=== PATIENT | male | born 1940 | race Caucasian/White ===

== ENCOUNTER 2020-03-01 09:54 | Observation (INO) | payer MEDICARE, OTHER ==
[~2020-03-01 09:54] MED LIST: Acetaminophen 325 MG Tab PO SCH; EPINEPHrine 1 MG/ML SDV ONE; Lactated Ringers 1,000 ML IV SCH; Lidocaine 1% 0 ML ONE; Lidocaine 1%/Sod Bicarbonate in NS 8.4% 1 ML Syringe IDERM PRN; Morphine 8 MG, EPINEPHrine 0.3 MG, Cefuroxime 750 MG, Ketorolac 30 MG, Sodium Chloride ... PRN; Ondansetron 4 MG/2 ML SDV ONE; Pregabalin 25 MG Cap PO SCH; Propofol 200 MG/20 ML SDV ONE; Ropivacaine 0.5% 5 MG/ML 30 ML SDV ONE; Sodium Chloride 0.9% 10 ML Syringe FLUSH PRN; ceFAZolin 1 GM Vial ONE; oxyCODONE ER 10 MG TAB.ER PO SCH
--- NOTE | 2020-03-01 10:33 | PCM.PREANE ---
Preanesthetic Assessment - Procedure Proposed Procedure: right total knee arthroplasty - Anesthesia/Transfusion/Family Hx Anesthesia History: Prior Anesthesia Without Reaction Family History of Anesthesia Reaction: No Transfusion History: No Prior Transfusion(s) - Review of Systems General: No Symptoms Pulmonary: Shortness of Breath (when walks) Cardiovascular: Dyspnea on Exertion Gastrointestinal: No Symptoms Neurological: No Symptoms Other: Reports: None - Physical Assessment NPO Status Date: 02/29/20 NPO Status Time: 22:00 Vital Signs: Last Vital Signs Temp 97.0 F 03/01/20 09:50 Pulse 74 03/01/20 09:50 Resp 20 03/01/20 09:50 BP 136/71 03/01/20 09:50 Pulse Ox 100 03/01/20 09:50 Height: 5 ft 8 in Weight: 115.212 kg ASA Class: 3 Mental Status: Alert & Oriented x3 Airway Class: Mallampati = 1 Dentition: Reports: Edentulous (except for bottom teeth) Thyro-Mental Finger Breadths: 3 Mouth Opening Finger Breadths: 3 ROM/Head Extension: Full Lungs: Clear to Auscultation, Normal Respiratory Effort Cardiovascular: Regular Rate, Irregular Rhythm - Lab Values: Laboratory Last Values MRSA (PCR) Negative 02/18/20 14:50 - Allergies Allergies/Adverse Reactions: Allergies Allergy/AdvReac Type Severity Reaction Status Date / Time No Known Allergies Allergy Verified 02/27/20 12:40 - Blood Blood Available: No - Anesthesia Plan Beta Nydia: Metoprolol Med Last Dose Date: 03/01/20 Med Last Dose Time: 05:30 - Acknowledgements Anesthesia Type Planned: Spinal Pt an Appropriate Candidate for the Planned Anesthesia: Yes Alternatives and Risks of Anesthesia Discussed w Pt/Guardian: Yes Pt/Guardian Understands and Agrees with Anesthesia Plan: Yes PreAnesthesia Questionnaire HEENT History: Reports: None Cardiovascular History: Reports: Afib, High Cholesterol, Hypertension, Other (See Below) Other Cardiovascular History: bradycardia Respiratory History: Reports: None, Other (See Below) (puff of inhaler am and pm- not used lately) Gastrointestinal History: Reports: None Genitourinary History: Reports: Other (See Below) Other Genitourinary History: frequency [employer] History: Reports: None Musculoskeletal History: Reports: Arthritis, Other (See Below) Other Musculoskeletal History: left knee arthritis, left ankle fracture Neurological History: Reports: None Psychiatric History: Reports: None Endocrine/Metabolic History: Reports: Obesity/BMI 30+ Hematologic History: Reports: None Immunologic History: Reports: None Oncologic (Cancer) History: Reports: None Dermatologic History: Reports: None - Past Surgical History Head Surgeries/Procedures: Reports: None HEENT Surgical History: Reports: None Cardiovascular Surgical History: Reports: None Respiratory Surgical History: Reports: None GI Surgical History: Reports: Colonoscopy Female Surgical History: Reports: None Male Surgical History: Reports: None Endocrine Surgical History: Reports: None Neurological Surgical History: Reports: None Musculoskeletal Surgical History: Reports: Hip Replacement, Knee Replacement Oncologic Surgical History: Reports: None Dermatological Surgical History: Reports: None - SUBSTANCE USE Tobacco Use Status *Q: Never Tobacco User Tobacco Use Within Last Twelve Months: No Second Hand Smoke Exposure: No Recreational Drug Use History: No - HOME MEDS Home Medications: Home Meds Albuterol Sulfate [Proair Hfa] 1 - 2 puff INH Q4H PRN 02/27/20 [History] Cholecalciferol (Vitamin D3) [Vitamin D3] 4,000 unit PO DAILY 02/27/20 [History] Finasteride [Proscar] 5 mg PO DAILY 02/27/20 [History] Metoprolol Succinate 100 mg PO DAILY 02/27/20 [History] Naproxen [Naprosyn] 500 mg PO Q6H PRN 02/27/20 [History] Rivaroxaban [Xarelto] 20 mg PO DAILY 02/27/20 [History] Simvastatin [Zocor] 80 mg PO DAILY 02/27/20 [History] Spironolactone [Aldactone] 25 mg PO DAILY 02/27/20 [History] hydroCHLOROthiazide [Hydrochlorothiazide] 12.5 mg PO DAILY 02/27/20 [History] oxyCODONE 5 - 10 mg PO Q4H PRN #40 tab 02/28/20 [Rx] - CURRENT (IN HOUSE) MEDS Current Meds: Current Medications Acetaminophen (Tylenol) 975 mg PO ONETIME [facility] Stop: 03/01/20 15:00 Last Admin: 03/01/20 10:24 Dose: 975 mg Documented by: Morphine Sulfate 8 mg/Epinephrine HCl 0.3 mg/Cefuroxime Sodium 750 mg/Ketorolac Tromethamine 30 mg/Sodium Chloride 7.9 ml 0 mg .XX ASDIRECTED PRN PRN Reason: Pain Stop: 03/01/20 13:00 Lactated Ringer's (Ringers, Lactated) 1,000 mls @ 125 mls/hr IV ASDIRECTED [facility] Stop: 03/01/20 23:00 Lidocaine/Sodium Bicarbonate (Buffered Lidocaine 1% In Ns 8.4%) 0.25 ml IDERM ONETIME PRN PRN Reason: Prior to IV Start Stop: 03/01/20 18:00 Oxycodone HCl (Oxycontin) 10 mg PO ONETIME [facility] Stop: 03/01/20 15:00 Last Admin: 03/01/20 10:23 Dose: 10 mg Documented by: Pregabalin (Lyrica) 50 mg PO ONETIME [facility] Stop: 03/01/20 15:00 Last Admin: 03/01/20 10:24 Dose: 50 mg Documented by: Sodium Chloride (Saline Flush) 10 ml FLUSH ASDIRECTED PRN PRN Reason: Keep Vein Open Stop: 03/01/20 18:00 Discontinued Medications Cefazolin Sodium (Ancef) Confirm Administered Dose 2 gm .ROUTE .[facility]-MED ONE Stop: 03/01/20 07:48 Epinephrine HCl (Adrenalin) Confirm Administered Dose 1 mg .ROUTE .ST[facility]-MED ONE Stop: 03/01/20 07:42 Lidocaine HCl (Xylocaine-Mpf 1%) Confirm Administered Dose 4 mls @ as directed .ROUTE .ST[facility]-MED ONE Stop: 03/01/20 07:48 Ondansetron HCl (Zofran) Confirm Administered Dose 4 mg .ROUTE .STK-MED ONE Stop: 03/01/20 07:48 Propofol (Diprivan 20 Ml) Confirm Administered Dose 400 mg .ROUTE .ST[facility]-MED ONE Stop: 03/01/20 07:48 Ropivacaine (Naropin 0.5%) Confirm Administered Dose 30 ml .ROUTE .STK-MED ONE Stop: 03/01/20 07:42
[2020-03-01] MEDS ORDERED: Bupivacaine 0.25% 10 ML SDV ONE (10:37)
[2020-03-01] MEDS ORDERED: Lidocaine 1% 4 ML ONE (10:47)
[2020-03-01] MEDS ORDERED: Propofol 200 MG/20 ML SDV ONE (10:47)
[2020-03-01] MEDS ORDERED: fentaNYL 100 MCG/2 ML SDV ONE (10:47)
[2020-03-01] MEDS ORDERED: Midazolam 1 MG/ML 2 ML SDV ONE (10:48)
[2020-03-01] MEDS ORDERED: ePHEDrine 50 MG/ML SDV ONE (12:53)
[2020-03-01] MEDS ORDERED: Lactated Ringers 1,000 ML ONE (12:58)
[2020-03-01] MEDS: Vancomycin 1 GM SDV ONE ×2 (13:39→13:42)
[2020-03-01] MEDS ORDERED: Ketamine 500 mg/10 ML MDV ONE (13:55)
--- NOTE | 2020-03-01 14:21 | PCM.POSTAN ---
POST ANESTHESIA ASSESSMENT - MENTAL STATUS Mental Status: Alert - VITAL SIGNS Vital Signs: Last Vital Signs Temp 36.1 C 03/01/20 09:50 Pulse 74 03/01/20 09:50 Resp 20 03/01/20 09:50 BP 136/71 03/01/20 09:50 Pulse Ox 100 03/01/20 09:50 - RESPIRATORY Respiratory Status: Respiratory Rate WNL, Airway Patent, O2 Saturation Stable, Supplemental Oxygen - CARDIOVASCULAR CV Status: Pulse Rate WNL, Blood Pressure Stable - GASTROINTESTINAL GI Status: No Symptoms - PAIN Pain Score: 0 - POST OP HYDRATION Hydration Status: Adequate & Stable
--- NOTE | 2020-03-01 15:07 | PCM.SN.2 ---
- Free Text/Narrative Note: Right selective femoral nerve block at the adductor canal for post-procedure pain control under US guidance requested by Dr. Rodriguez. Date: 03/01/2020 Time Out: 1450 Start: 1452 End: 145 Chart reviewed. Consent signed. Questions answered. Appropriate monitors applied. Time out performed. Right mid-shaft femur identified with ultrasound, scanning medially of femur, the femoral artery in the adductor canal visualized, and the femoral nerve located laterally to the artery. The skin was prepped lateral to the ultrasound probe with chlorahexadine times two. The 21ga 4 insulated block needle was inserted under direct ultrasound guidance into the adductor canal. 25mL of 0.5% ropivacaine with 1:200,000 epinephrine was injected circumferentially around the nerve with intermittent negative aspiration noted. Patient tolerated the procedure well. Sterile technique noted along with sterile gloves, mask, and sterile probe cover. See picture on progress note and vital signs on nurses notes. Block completed in PACU. Sandra Vidal CRNA
--- NOTE | 2020-03-01 15:09 | CR ---
Right knee: AP and lateral views of the right knee were obtained. Comparison: No previous knee study is available. Knee prosthesis is noted. Soft tissue air is noted from the knee prosthesis surgery. No underlying bony abnormality is appreciated. Impression: 1. Satisfactory postoperative radiographic appearance of recently placed right knee prosthesis. Diagnostic code #2
[2020-03-01] MEDS ORDERED: oxyCODONE 5 MG Tab PO PRN (16:11)
[2020-03-01] MEDS ORDERED: Morphine 2 MG/ML SYRINGE IVPUSH PRN (16:12)
[2020-03-01] MEDS ORDERED: Sennosides 8.6 MG Tab PO PRN (16:12)
[2020-03-01] MEDS ORDERED: Naloxone 0.4 MG/ML SDV IVPUSH PRN (16:12)
[2020-03-01] MEDS ORDERED: Ondansetron 4 MG/2 ML SDV IVPUSH PRN (16:12)
[2020-03-01] MEDS ORDERED: Albuterol 6.7 GM Inhaler INH PRN (16:16)
[2020-03-01] MEDS: ceFAZolin 2 GM in Premix Bag 1 BAG IV SCH (19:54)
[2020-03-01] MEDS: Cyclobenzaprine 10 MG Tab PO PRN (20:02)
[2020-03-02] MEDS: oxyCODONE 5 MG Tab PO PRN ×2 (00:05→04:04)
[2020-03-02] MEDS: ceFAZolin 2 GM in Premix Bag 1 BAG IV SCH (04:00)
[2020-03-02] MEDS: Cyclobenzaprine 10 MG Tab PO PRN (08:41)
--- NOTE | 2020-03-02 08:45 | PCM48HPAN ---
Post Anesthesia Note - EVALUATION WITHIN 48HRS OF ANESTHETIC Vital Signs in Normal Range: Yes Patient Participated in Evaluation: Yes Respiratory Function Stable: Yes Airway Patent: Yes Cardiovascular Function Stable: Yes Hydration Status Stable: Yes Pain Control Satisfactory: Yes Nausea and Vomiting Control Satisfactory: Yes Mental Status Recovered: Yes Vital Signs: Last Vital Signs Temp 36.2 C 03/02/20 07:49 Pulse 88 03/02/20 08:37 Resp 16 03/02/20 07:49 BP 114/54 L 03/02/20 08:37 Pulse Ox 96 03/02/20 07:49
[2020-03-02] MEDS ORDERED: Rivaroxaban 10 MG Tab PO SCH (09:00)
[2020-03-02] MEDS ORDERED: Simvastatin 40 MG Tab PO SCH (09:00)
[2020-03-02] MEDS ORDERED: Finasteride 5 MG Tab PO SCH (09:00)
[2020-03-02] MEDS ORDERED: Metoprolol Succinate 50 MG Tab.ER PO SCH (09:00)
[2020-03-02] MEDS ORDERED: Cholecalciferol (Vitamin D3) 25 MCG Tab PO SCH (09:00)
--- NOTE | 2020-03-02 09:30 | PCM.SURGPN ---
- General Info Date of Service: 03/02/20 POD#: 1 Functional Status: Reports: Pain Controlled, Tolerating Diet, Ambulating, Urinating, Incentive Spirometry, Other (The pt states he is doing well and prepared for d/c to home.) - Patient Data Vitals - Most Recent: Last Vital Signs Temp 97.2 F 03/02/20 07:49 Pulse 88 03/02/20 08:37 Resp 16 03/02/20 07:49 BP 114/54 L 03/02/20 08:37 Pulse Ox 96 03/02/20 07:49 Weight - Most Recent: 254 lb I&O - Last 24 Hours: Intake & Output 03/01/20 03/02/20 03/02/20 22:59 06:59 14:59 Intake Total 460 Balance 460 Lab Results Last 24 Hrs: Laboratory Results - last 24 hr 03/01/20 03/02/20 03/02/20 Range/Units 10:35 05:23 05:23 WBC 8.47 (4.23-9.07) K/mm3 RBC 3.77 L (4.63-6.08) M/mm3 Hgb 12.3 L (13.7-17.5) gm/dl Hct 38.3 L (40.1-51.0) % MCV 101.6 H (79.0-92.2) fl MCH 32.6 H (25.7-32.2) pg MCHC 32.1 L (32.2-35.5) g/dl RDW Std Deviation 51.4 H (35.1-43.9) fL Plt Count 150 L (163-337) K/mm3 MPV 9.5 (9.4-12.3) fl PT 11.4 (9.7-12.0) SECONDS INR 1.07 APTT 27.5 (21.7-31.4) SECONDS Sodium 144 (136-145) mEq/L Potassium 4.3 (3.5-5.1) mEq/L Chloride 107 (98-107) mEq/L Carbon Dioxide 26 (21-32) mEq/L Anion Gap 15.3 H (5-15) BUN 24 H (7-18) mg/dL Creatinine 1.4 H (0.7-1.3) mg/dL Est Cr Clr Drug Dosing 42.07 mL/min Estimated GFR (MDRD) 49 (>60) mL/min BUN/Creatinine Ratio 17.1 (14-18) Glucose 103 (83-115) mg/dL Calcium 9.1 (8.5-10.1) mg/dL Total Bilirubin 0.6 (0.2-1.0) mg/dL AST 14 L (15-37) U/L ALT 13 L (16-63) U/L Alkaline Phosphatase 64 (46-116) U/L Total Protein 6.5 (6.4-8.2) g/dl Albumin 3.1 L (3.4-5.0) g/dl Globulin 3.4 gm/dL Albumin/Globulin Ratio 0.9 L (1-2) Med Orders - Current: Current Medications Albuterol (Proventil Hfa) 1 - 2 gm INH Q4H PRN PRN Reason: Shortness of Breath Cholecalciferol (Vitamin D3) 100 mcg PO DAILY [facility] Last Admin: 03/02/20 08:36 Dose: 100 mcg Documented by: Cyclobenzaprine HCl (Flexeril) 5 mg PO BID PRN PRN Reason: Spasms Last Admin: 03/02/20 08:41 Dose: 5 mg Documented by: Finasteride (Proscar) 5 mg PO DAILY [facility] Last Admin: 03/02/20 08:39 Dose: 5 mg Documented by: Cefazolin Sodium/Dextrose 2 gm (/ Premix) 50 mls @ 100 mls/hr IV Q8H [facility] Stop: 03/02/20 12:29 Last Admin: 03/02/20 04:00 Dose: 100 mls/hr Documented by: Metoprolol Succinate (Toprol Xl) 100 mg PO DAILY [facility] Last Admin: 03/02/20 08:37 Dose: 100 mg Documented by: Morphine Sulfate (Morphine) 2 mg IVPUSH Q2H PRN PRN Reason: Breakthrough Pain Naloxone HCl (Narcan) 0.1 mg IVPUSH Q5M PRN PRN Reason: Oversedation Ondansetron HCl (Zofran) 4 mg IVPUSH Q6H PRN PRN Reason: Nausea/Vomiting Oxycodone HCl (Oxycodone) 5 mg PO Q4H PRN PRN Reason: Pain Last Admin: 03/02/20 04:04 Dose: 5 mg Documented by: Oxycodone HCl (Oxycodone) 5 - 10 mg PO Q4H PRN PRN Reason: Pain Last Admin: 03/02/20 08:39 Dose: 10 mg Documented by: Rivaroxaban (Xarelto) 20 mg PO DAILY [facility] Last Admin: 03/02/20 08:36 Dose: 20 mg Documented by: Senna (Senna) 8.6 mg PO BID PRN PRN Reason: Constipation Simvastatin (Zocor) 80 mg PO DAILY [facility] Last Admin: 03/02/20 08:40 Dose: 80 mg Documented by: Discontinued Medications Acetaminophen (Tylenol) 975 mg PO ONETIME [facility] Stop: 03/01/20 15:00 Last Admin: 03/01/20 10:24 Dose: 975 mg Documented by: Bupivacaine HCl (Sensorcaine-Mpf 0.25%) Confirm Administered Dose 30 ml .ROUTE .STK-MED ONE Stop: 03/01/20 10:38 Last Admin: 03/01/20 13:37 Dose: 30 ml Documented by: Cefazolin Sodium (Ancef) Confirm Administered Dose 2 gm .ROUTE .STK-MED ONE Stop: 03/01/20 07:48 Morphine Sulfate 8 mg/Epinephrine HCl 0.3 mg/Cefuroxime Sodium 750 mg/Ketorolac Tromethamine 30 mg/Sodium Chloride 7.9 ml 0 mg .XX ASDIRECTED PRN PRN Reason: Pain Stop: 03/01/20 13:00 Last Admin: 03/01/20 13:37 Dose: 788.3 mg Documented by: Ephedrine Sulfate (Ephedrine Sulfate) Confirm Administered Dose 50 mg .ROUTE .STK-MED ONE Stop: 03/01/20 12:54 Epinephrine HCl (Adrenalin) Confirm Administered Dose 1 mg .ROUTE .STK-MED ONE Stop: 03/01/20 07:42 Fentanyl (Sublimaze) Confirm Administered Dose 100 mcg .ROUTE .STK-MED ONE Stop: 03/01/20 10:48 Lactated Ringer's (Ringers, Lactated) 1,000 mls @ 125 mls/hr IV ASDIRECTED [facility] Stop: 03/01/20 23:00 Last Admin: 03/01/20 10:45 Dose: 125 mls/hr Documented by: Lidocaine HCl (Xylocaine-Mpf 1%) Confirm Administered Dose 4 mls @ as directed .ROUTE .STK-MED ONE Stop: 03/01/20 07:48 Lidocaine HCl (Xylocaine-Mpf 1%) Confirm Administered Dose 4 mls @ as directed .ROUTE .[facility]-MED ONE Stop: 03/01/20 10:48 Lactated Ringer's (Ringers, Lactated) Confirm Administered Dose 1,000 mls @ as directed .ROUTE .[facility]-MED ONE Stop: 03/01/20 12:59 Ketamine HCl (Ketalar) Confirm Administered Dose 500 mg .ROUTE .[facility]-MED ONE Stop: 03/01/20 13:56 Lidocaine/Sodium Bicarbonate (Buffered Lidocaine 1% In Ns 8.4%) 0.25 ml IDERM ONETIME PRN PRN Reason: Prior to IV Start Stop: 03/01/20 18:00 Last Admin: 03/01/20 10:45 Dose: 0.25 ml Documented by: Midazolam HCl (Versed 1 Mg/Ml) Confirm Administered Dose 2 mg .ROUTE .[facility]-MED ONE Stop: 03/01/20 10:49 Ondansetron HCl (Zofran) Confirm Administered Dose 4 mg .ROUTE .[facility] ONE Stop: 03/01/20 07:48 Oxycodone HCl (Oxycontin) 10 mg PO ONETIME [facility] Stop: 03/01/20 15:00 Last Admin: 03/01/20 10:23 Dose: 10 mg Documented by: Pregabalin (Lyrica) 50 mg PO ONETIME [facility] Stop: 03/01/20 15:00 Last Admin: 03/01/20 10:24 Dose: 50 mg Documented by: Propofol (Diprivan 20 Ml) Confirm Administered Dose 400 mg .ROUTE .[facility]-MED ONE Stop: 03/01/20 07:48 Propofol (Diprivan 20 Ml) Confirm Administered Dose 400 mg .ROUTE .[facility]-MED ONE Stop: 03/01/20 10:48 Ropivacaine (Naropin 0.5%) Confirm Administered Dose 30 ml .ROUTE .[facility]-MED ONE Stop: 03/01/20 07:42 Sodium Chloride (Saline Flush) 10 ml FLUSH ASDIRECTED PRN PRN Reason: Keep Vein Open Stop: 03/01/20 18:00 Tranexamic Acid (Cyklokapron) Confirm Administered Dose 1,000 mg .ROUTE .ST-MED ONE Stop: 03/01/20 10:38 Last Admin: 03/01/20 13:42 Dose: 1,000 mg Documented by: Vancomycin HCl (Vancomycin) Confirm Administered Dose 1 gm .ROUTE .STK-MED ONE Stop: 03/01/20 10:38 Last Admin: 03/01/20 13:42 Dose: 1 gm Documented by: - Exam Wound/Incisions: Dressing Dry and Intact General: Alert, Cooperative, No Acute Distress Lungs: Normal Respiratory Effort Extremities: Other (NVS intact for BLE. Juan Manuel's negative.) Sepsis Event Note - Evaluation Sepsis Screening Result: No Definite Risk - Focused Exam Vital Signs: Vital Signs Temp Pulse Resp BP Pulse Ox 03/02/20 08:37 88 114/54 L 03/02/20 07:49 97.2 F 72 16 114/54 L 96 03/02/20 04:15 96.8 F L 71 16 121/59 L 95 03/01/20 23:56 96.6 F L 59 L 14 114/91 H 92 L 03/01/20 21:34 108/73 - Problem List Review Problem List Initiated/Reviewed/Updated: Yes - My Orders Last 24 Hours: Active Orders 24 hr Category Date Time Status Patient Status [ADT] Routine ADT 03/01/20 16:12 Active Ambulate [RC] PER UNIT ROUTINE Care 03/01/20 16:12 Active Antiembolic Devices [RC] PER UNIT ROUTINE Care 03/01/20 16:11 Active Communication Order [RC] ASDIRECTED Care 03/01/20 16:18 Active Communication Order [RC] ASDIRECTED Care 03/02/20 09:24 Ordered May Shower [RC] ASDIRECTED Care 03/01/20 16:12 Active Oxygen Therapy [RC] PRN Care 03/01/20 16:12 Active RT Incentive Spirometry [RC] Q1HWA Care 03/01/20 16:10 Active Up to Chair [RC] ASDIRECTED Care 03/01/20 16:12 Active Vital Signs [RC] Q4HR Care 03/01/20 16:12 Active OT Evaluation and Treatment [CONS] Routine Cons 03/01/20 16:10 Active PT Evaluation and Treatment [CONS] Routine Cons 03/01/20 16:10 Active Regular Diet [DIET] Diet 03/01/20 Dinner Active Regular Diet [DIET] Diet 03/01/20 Dinner Active Albuterol [Proventil HFA] Med 03/01/20 16:16 Active 1 - 2 gm INH Q4H PRN Cholecalciferol (Vitamin D3) [Vitamin D3] Med 03/02/20 09:00 Active 100 mcg PO DAILY Cyclobenzaprine [Flexeril] Med 03/01/20 16:11 Active 5 mg PO BID PRN Finasteride [Proscar] Med 03/02/20 09:00 Active 5 mg PO DAILY Metoprolol Succinate [Toprol XL] Med 03/02/20 09:00 Active 100 mg PO DAILY Morphine Med 03/01/20 16:12 Active 2 mg IVPUSH Q2H PRN Naloxone [Narcan] Med 03/01/20 16:12 Active 0.1 mg IVPUSH Q5M PRN Ondansetron [Zofran] Med 03/01/20 16:12 Active 4 mg IVPUSH Q6H PRN Rivaroxaban [Xarelto] Med 03/02/20 09:00 Active 20 mg PO DAILY Sennosides [Senna] Med 03/01/20 16:12 Active 8.6 mg PO BID PRN Simvastatin [Zocor] Med 03/02/20 09:00 Active 80 mg PO DAILY ceFAZolin [Ancef] 2 gm Med 03/01/20 20:00 Active Premix Bag 1 bag IV Q8H oxyCODONE Med 03/01/20 16:11 Active 5 - 10 mg PO Q4H PRN oxyCODONE Med 03/01/20 15:40 Active 5 mg PO Q4H PRN Antiembolic Hose [OM.PC] Routine Oth 03/01/20 16:11 Ordered Ice Therapy [OM.PC] Per Unit Routine Oth 03/01/20 16:13 Ordered Sequential Compression Device [OM.PC] Per Unit Routine Oth 03/01/20 16:11 Ordered Resuscitation Status Routine Resus Stat 03/01/20 16:12 Ordered Medication Orders Albuterol (Proventil Hfa) 1 - 2 gm INH Q4H PRN PRN Reason: Shortness of Breath Cholecalciferol (Vitamin D3) 100 mcg PO DAILY [facility] Last Admin: 03/02/20 08:36 Dose: 100 mcg Documented by: ANGELA Cyclobenzaprine HCl (Flexeril) 5 mg PO BID PRN PRN Reason: Spasms Last Admin: 03/02/20 08:41 Dose: 5 mg Documented by: Admin: 03/01/20 20:02 Dose: 5 mg Documented by: KALEE Finasteride (Proscar) 5 mg PO DAILY [facility] Last Admin: 03/02/20 08:39 Dose: 5 mg Documented by: ANGELA Cefazolin Sodium/Dextrose 2 gm (/ Premix) 50 mls @ 100 mls/hr IV Q8H [facility] Stop: 03/02/20 12:29 Last Admin: 03/02/20 04:00 Dose: 100 mls/hr Documented by: Infusion: 03/01/20 20:24 Dose: 100 mls/hr Documented by: Admin: 03/01/20 19:54 Dose: 100 mls/hr Documented by: KALEE Metoprolol Succinate (Toprol Xl) 100 mg PO DAILY [facility] Last Admin: 03/02/20 08:37 Dose: 100 mg Documented by: ANGELA Morphine Sulfate (Morphine) 2 mg IVPUSH Q2H PRN PRN Reason: Breakthrough Pain Naloxone HCl (Narcan) 0.1 mg IVPUSH Q5M PRN PRN Reason: Oversedation Ondansetron HCl (Zofran) 4 mg IVPUSH Q6H PRN PRN Reason: Nausea/Vomiting Oxycodone HCl (Oxycodone) 5 mg PO Q4H PRN PRN Reason: Pain Last Admin: 03/02/20 04:04 Dose: 5 mg Documented by: Admin: 03/02/20 00:05 Dose: 5 mg Documented by: KALEE Oxycodone HCl (Oxycodone) 5 - 10 mg PO Q4H PRN PRN Reason: Pain Last Admin: 03/02/20 08:39 Dose: 10 mg Documented by: ANGELA Rivaroxaban (Xarelto) 20 mg PO DAILY [facility] Last Admin: 03/02/20 08:36 Dose: 20 mg Documented by: ANGELA Senna (Senna) 8.6 mg PO BID PRN PRN Reason: Constipation Simvastatin (Zocor) 80 mg PO DAILY [facility] Last Admin: 03/02/20 08:40 Dose: 80 mg Documented by: ANGELA - Assessment Assessment (Free Text/Narrative):: POD#1 - s/p right TKA - Plan Plan (Free Text/Narrative):: 1. Hgb 12.3. 2. Creat 1.4 and GFR 49. Pre-op 1.05 with GFR 68. Will have pt f/u with PCP for monitoring post-op. 3. Discharge to home today. The pt remained in Hospital overnight as he did n ot meet PT goals POD#0. He has met therapy goals and prepared for d/c today. 4. Pt to resume Xarelto use today. The pt's case was discussed with Dr. Rodriguez.
--- NOTE | 2020-03-02 10:49 | PCM.DCSUM1 ---
Discharge Summary - Hospital Course Brief History: Delfino is a 79 yo male who underwent right TKA with Dr. Rodriguez on 03-01-2020. The procedure was completed under spinal anesthesia with sedation and a post-operative adductor canal block was provided. The pt tolerated the procedure well, however, was unable to meet therapy goals in the immediate post- operative period and therefore, was admitted under Observation status to Hospital. The pt's Hospital course was uneventful. The pt's Hgb on POD#1 was 12.3. His creatinine was 1.04 pre-operatively and was 1.4 post-operatively. On POD#1, the pt resumed use of Xarelto. SCDs and TEDs were also used during Hospital stay. A Mepilex dressing was placed at the incision site at the time of surgery and remained clean and dry. The pt participated in P.T. and O.T. and progressed well. The pt was allowed to WBAT and used a FWW for mobility. On POD#1, the pt was deemed appropriate to discharge to home. The pt will follow- up with his primary care provider for monitoring of his status post-operatively. - Discharge Data Discharge Date: 03/02/20 Discharge Disposition: Home, Self-Care 01 Condition: Good - Referral to Home Health Primary Care Physician: PCP None - Patient Summary/Data Consults: Consultations 03/01/20 16:10 OT Evaluation and Treatment [CONS] Routine PT Evaluation and Treatment [CONS] Routine - Patient Instructions Diet: Usual Diet as Tolerated Activity: Apply Ice, As Tolerated, Elevate Extremity, Full Weight Bearing Driving: Do Not Drive Showering/Bathing: May Shower Wound/Incision Care: Keep Operative Site/Wound Site Clean and Dry, Do NOT Change Dressing Notify Provider of: Fever, Increased Pain, Swelling and Redness, Drainage, Nausea and/or Vomiting Other/Special Instructions: Please get up and moving around EVERY HOUR while awake. This helps to prevent blood clots. Please use your walker and have help with mobility as needed. Take a short walk in your home every hour while awake. Starting on 03-02-2020, please resume use of Xarelto. At home, please complete the exercises that you learned after surgery. Schedule for physical therapy. Use the pain medication as needed. The medication may cause drowsiness and constipation. Contact your primary care provider for instructions if you are constipated. You may use a stool softener like docusate sodium or Colace 100mg twice daily and/or a laxative like Miralax daily for constipation. Increase your water and fiber intake while you are using the pain medication. Please discontinue use of the prescription pain medication as soon as able. The goal is to use the least amount of prescription pain medication as possible and to discontinue use of the prescription pain medication as soon as possible. Please do not use other medications that may cause drowsiness (other pain medications, anxiety pills, cold medications, sleeping pills, etc) while using the prescription pain medication. Do not use alcohol while using the pain medication. You may use acetaminophen or Tylenol for pain management, however, please ensure you are not using over 4000 mg or 4 grams of acetaminophen per day. On the day following surgery, you may remove the ARTURO bandage on the surgical limb and put on the AMARA hose. If you can tolerate use of the AMARA hose, wear them during the day and remove them at night. Elevate the limb to decrease swelling. Elevating the limb above the level of the heart will be most effective. Elevating the foot higher than the knee will help to decrease swelling in the foot. Place ice to the area often. Place a towel between your skin and the blue pad. Please keep the dressing in place until follow-up. As long as the dressing is sealed and without a hole, the dressing is water resistant and therefore, you may have a shower. Please do not soak that dressing in a tub, pool, whirlpool. Notify the Clinic if the dressing becomes saturated. Increase your protein intake while you are healing. It is normal to have swelling and bruising at the surgical site, as well as above and below the surgical site. If you have diabetes or have been instructed by your primary care provider to monitor your blood sugars, please closely monitor your sugars. Notify your primary care provider of the values. Elevated sugars can increase the risk of infection. PLEASE SCHEDULE a FOLLOW-UP appointment with your primary care provider to monitor your kidney function after surery. If you have questions or concerns, please call [phone] and leave a message for the nurse. Your call will be returned. - Discharge Plan *PRESCRIPTION DRUG MONITORING PROGRAM REVIEWED*: No *COPY OF PRESCRIPTION DRUG MONITORING REPORT IN PATIENT KEVYN: No Prescriptions/Med Rec: oxyCODONE 5 - 10 mg PO Q4H PRN #40 tab PRN Reason: Pain Home Medications: Home Meds Albuterol Sulfate [Proair Hfa] 1 - 2 puff INH Q4H PRN 02/27/20 [History] Cholecalciferol (Vitamin D3) [Vitamin D3] 4,000 unit PO DAILY 02/27/20 [History] Finasteride [Proscar] 5 mg PO DAILY 02/27/20 [History] Metoprolol Succinate 100 mg PO DAILY 02/27/20 [History] Naproxen [Naprosyn] 500 mg PO Q6H PRN 02/27/20 [History] Rivaroxaban [Xarelto] 20 mg PO DAILY 02/27/20 [History] Simvastatin [Zocor] 80 mg PO DAILY 02/27/20 [History] Spironolactone [Aldactone] 25 mg PO DAILY 02/27/20 [History] hydroCHLOROthiazide [Hydrochlorothiazide] 12.5 mg PO DAILY 02/27/20 [History] oxyCODONE 5 - 10 mg PO Q4H PRN #40 tab 02/28/20 [Rx] Patient Handouts: Rivaroxaban oral tablets Referrals: Cecily Millan PA-C [Physician Mold [employer]apper] - - Discharge Summary/Plan Comment DC Time >30 min.: No - Patient Data Vitals - Most Recent: Last Vital Signs Temp 97.2 F 03/02/20 07:49 Pulse 88 03/02/20 08:37 Resp 16 03/02/20 07:49 BP 114/54 L 03/02/20 08:37 Pulse Ox 96 03/02/20 07:49 Weight - Most Recent: 254 lb I&O - Last 24 hours: Intake & Output 03/01/20 03/02/20 03/02/20 22:59 06:59 14:59 Intake Total 460 Balance 460 Lab Results - Last 24 hrs: Laboratory Results - last 24 hr 03/01/20 03/02/20 03/02/20 Range/Units 10:35 05:23 05:23 WBC 8.47 (4.23-9.07) K/mm3 RBC 3.77 L (4.63-6.08) M/mm3 Hgb 12.3 L (13.7-17.5) gm/dl Hct 38.3 L (40.1-51.0) % MCV 101.6 H (79.0-92.2) fl MCH 32.6 H (25.7-32.2) pg MCHC 32.1 L (32.2-35.5) g/dl RDW Std Deviation 51.4 H (35.1-43.9) fL Plt Count 150 L (163-337) K/mm3 MPV 9.5 (9.4-12.3) fl PT 11.4 (9.7-12.0) SECONDS INR 1.07 APTT 27.5 (21.7-31.4) SECONDS Sodium 144 (136-145) mEq/L Potassium 4.3 (3.5-5.1) mEq/L Chloride 107 (98-107) mEq/L Carbon Dioxide 26 (21-32) mEq/L Anion Gap 15.3 H (5-15) BUN 24 H (7-18) mg/dL Creatinine 1.4 H (0.7-1.3) mg/dL Est Cr Clr Drug Dosing 42.07 mL/min Estimated GFR (MDRD) 49 (>60) mL/min BUN/Creatinine Ratio 17.1 (14-18) Glucose 103 (83-115) mg/dL Calcium 9.1 (8.5-10.1) mg/dL Total Bilirubin 0.6 (0.2-1.0) mg/dL AST 14 L (15-37) U/L ALT 13 L (16-63) U/L Alkaline Phosphatase 64 (46-116) U/L Total Protein 6.5 (6.4-8.2) g/dl Albumin 3.1 L (3.4-5.0) g/dl Globulin 3.4 gm/dL Albumin/Globulin Ratio 0.9 L (1-2) Med Orders - Current: Current Medications Albuterol (Proventil Hfa) 1 - 2 gm INH Q4H PRN PRN Reason: Shortness of Breath Cholecalciferol (Vitamin D3) 100 mcg PO DAILY [facility] Last Admin: 03/02/20 08:36 Dose: 100 mcg Documented by: Cyclobenzaprine HCl (Flexeril) 5 mg PO BID PRN PRN Reason: Spasms Last Admin: 03/02/20 08:41 Dose: 5 mg Documented by: Finasteride (Proscar) 5 mg PO DAILY [facility] Last Admin: 03/02/20 08:39 Dose: 5 mg Documented by: Cefazolin Sodium/Dextrose 2 gm (/ Premix) 50 mls @ 100 mls/hr IV Q8H [facility] Stop: 03/02/20 12:29 Last Admin: 03/02/20 04:00 Dose: 100 mls/hr Documented by: Metoprolol Succinate (Toprol Xl) 100 mg PO DAILY [facility] Last Admin: 03/02/20 08:37 Dose: 100 mg Documented by: Morphine Sulfate (Morphine) 2 mg IVPUSH Q2H PRN PRN Reason: Breakthrough Pain Naloxone HCl (Narcan) 0.1 mg IVPUSH Q5M PRN PRN Reason: Oversedation Ondansetron HCl (Zofran) 4 mg IVPUSH Q6H PRN PRN Reason: Nausea/Vomiting Oxycodone HCl (Oxycodone) 5 mg PO Q4H PRN PRN Reason: Pain Last Admin: 03/02/20 04:04 Dose: 5 mg Documented by: Oxycodone HCl (Oxycodone) 5 - 10 mg PO Q4H PRN PRN Reason: Pain Last Admin: 03/02/20 08:39 Dose: 10 mg Documented by: Rivaroxaban (Xarelto) 20 mg PO DAILY [facility] Last Admin: 03/02/20 08:36 Dose: 20 mg Documented by: Senna (Senna) 8.6 mg PO BID PRN PRN Reason: Constipation Simvastatin (Zocor) 80 mg PO DAILY [facility] Last Admin: 03/02/20 08:40 Dose: 80 mg Documented by: Discontinued Medications Acetaminophen (Tylenol) 975 mg PO ONETIME [facility] Stop: 03/01/20 15:00 Last Admin: 03/01/20 10:24 Dose: 975 mg Documented by: Bupivacaine HCl (Sensorcaine-Mpf 0.25%) Confirm Administered Dose 30 ml .ROUTE .STK-MED ONE Stop: 03/01/20 10:38 Last Admin: 03/01/20 13:37 Dose: 30 ml Documented by: Cefazolin Sodium (Ancef) Confirm Administered Dose 2 gm .ROUTE .STK-MED ONE Stop: 03/01/20 07:48 Morphine Sulfate 8 mg/Epinephrine HCl 0.3 mg/Cefuroxime Sodium 750 mg/Ketorolac Tromethamine 30 mg/Sodium Chloride 7.9 ml 0 mg .XX ASDIRECTED PRN PRN Reason: Pain Stop: 03/01/20 13:00 Last Admin: 03/01/20 13:37 Dose: 788.3 mg Documented by: Ephedrine Sulfate (Ephedrine Sulfate) Confirm Administered Dose 50 mg .ROUTE .STK-MED ONE Stop: 03/01/20 12:54 Epinephrine HCl (Adrenalin) Confirm Administered Dose 1 mg .ROUTE .STK-MED ONE Stop: 03/01/20 07:42 Fentanyl (Sublimaze) Confirm Administered Dose 100 mcg .ROUTE .STK-MED ONE Stop: 03/01/20 10:48 Lactated Ringer's (Ringers, Lactated) 1,000 mls @ 125 mls/hr IV ASDIRECTED [facility] Stop: 03/01/20 23:00 Last Admin: 03/01/20 10:45 Dose: 125 mls/hr Documented by: Lidocaine HCl (Xylocaine-Mpf 1%) Confirm Administered Dose 4 mls @ as directed .ROUTE .STK-MED ONE Stop: 03/01/20 07:48 Lidocaine HCl (Xylocaine-Mpf 1%) Confirm Administered Dose 4 mls @ as directed .ROUTE .STK-MED ONE Stop: 03/01/20 10:48 Lactated Ringer's (Ringers, Lactated) Confirm Administered Dose 1,000 mls @ as directed .ROUTE .STK-MED ONE Stop: 03/01/20 12:59 Ketamine HCl (Ketalar) Confirm Administered Dose 500 mg .ROUTE .STK-MED ONE Stop: 03/01/20 13:56 Lidocaine/Sodium Bicarbonate (Buffered Lidocaine 1% In Ns 8.4%) 0.25 ml IDERM ONETIME PRN PRN Reason: Prior to IV Start Stop: 03/01/20 18:00 Last Admin: 03/01/20 10:45 Dose: 0.25 ml Documented by: Midazolam HCl (Versed 1 Mg/Ml) Confirm Administered Dose 2 mg .ROUTE .STK-MED ONE Stop: 03/01/20 10:49 Ondansetron HCl (Zofran) Confirm Administered Dose 4 mg .ROUTE .STK-MED ONE Stop: 03/01/20 07:48 Oxycodone HCl (Oxycontin) 10 mg PO ONETIME [facility] Stop: 03/01/20 15:00 Last Admin: 03/01/20 10:23 Dose: 10 mg Documented by: Pregabalin (Lyrica) 50 mg PO ONETIME [facility] Stop: 03/01/20 15:00 Last Admin: 03/01/20 10:24 Dose: 50 mg Documented by: Propofol (Diprivan 20 Ml) Confirm Administered Dose 400 mg .ROUTE .STK-MED ONE Stop: 03/01/20 07:48 Propofol (Diprivan 20 Ml) Confirm Administered Dose 400 mg .ROUTE .STK-MED ONE Stop: 03/01/20 10:48 Ropivacaine (Naropin 0.5%) Confirm Administered Dose 30 ml .ROUTE .STK-MED ONE Stop: 03/01/20 07:42 Sodium Chloride (Saline Flush) 10 ml FLUSH ASDIRECTED PRN PRN Reason: Keep Vein Open Stop: 03/01/20 18:00 Tranexamic Acid (Cyklokapron) Confirm Administered Dose 1,000 mg .ROUTE .STK-MED ONE Stop: 03/01/20 10:38 Last Admin: 03/01/20 13:42 Dose: 1,000 mg Documented by: Vancomycin HCl (Vancomycin) Confirm Administered Dose 1 gm .ROUTE .STK-MED ONE Stop: 03/01/20 10:38 Last Admin: 03/01/20 13:42 Dose: 1 gm Documented by:
--- NOTE | 2020-03-08 16:58 | PCM.OPNOTE ---
- General Post-Op/Procedure Note Date of Surgery/Procedure: 03/01/20 Operative Procedure(s): right total knee arthroplasty Pre Op Diagnosis: right knee osteoarthrosis Post-Op Diagnosis: Same Anesthesia Technique: Local, MAC, Spinal Primary Surgeon: Pedro Rodriguez Anesthesia Provider: Lisbet Johnson Surgical Services Director: Cecily Millan Surgical Services Director: Shannon Gibson in mLs: 5 Complications: None Condition: Good Free Text/Narrative:: 7 femur 6 tibia 9mm 35x10
--- NOTE | 2020-03-14 18:15 | OR ---
DATE OF OPERATION: 03/01/2020 SURGEON: Pedro Rodriguez MD OPERATION PERFORMED: Right total knee arthroplasty. PREOPERATIVE DIAGNOSIS: Right knee osteoarthrosis. POSTOPERATIVE DIAGNOSIS: Right knee osteoarthrosis. ANESTHESIA: Local MAC with spinal. ANESTHESIA PROVIDER: Lisbet Johnson. ASSISTANTS: Cecily Millan PA-C, and Shannon Gibson LPN. ESTIMATED BLOOD LOSS: 5 mL. COMPLICATIONS: None. CONDITION: Stable. IMPLANTS: 1. [place] size 7 cemented PS femur. 2. Rufus size 6 cemented universal tibial base plate. 3. Rufus size 6, 9 mm PS X3 polyethylene insert. 4. Rufus size 35 x 10 mm cemented asymmetric patella. DESCRIPTION OF PROCEDURE: The patient was identified in the preop holding area. Proper site was marked and identified by the surgeon. The patient was taken back to the operating theater. After adequate anesthesia, the patient's right lower extremity had a nonsterile tourniquet applied and it was sterilely prepped and draped in the usual sterile fashion. OR time-out was performed. The patient received 2 g IV Ancef. At this time, the right lower extremity was exsanguinated. Tourniquet was insufflated to 300 mmHg. Standard medial parapatellar incision was made. Medial parapatellar arthrotomy was created. Deep fibers of the MCL were raised and anterior fat pad was resected. At this time, attention was turned to the patella. Patella measured 25, it was resected to a 15 for 35 x 10 mm patella. Drill holes were then drilled and found to be in adequate position. The drill was then drilled in the distal femur and the intramedullary distal femoral cutting guide was then placed. 8 mm was resected off the distal femur and was found to be an adequate resection. Sizing guide was placed. It was found to be a size 7 cemented PS femur that was shown on the implant record at the beginning of this dictation. The drill holes were drilled for the epicondylar axis using [place] line and epicondyles as reference. At this time, the 4-in-1 cutting block was placed. An anterior posterior and anterior and posterior chamfer cuts were then completed. Box cut was completed. Attention was turned to the tibia. The posterior medial lateral retractors were placed. The extramedullary tibial guide was placed. It was placed in the old footprint of the ACL. It was aligned with the center of the ankle and 0 degrees of slope, 9 mm was then resected off the unaffected side. There was found to be an acceptable reduction. At this time, posterior osteophytes were removed along with medial and lateral meniscus. A trial implant was placed with a correct sized tibia that was mentioned at the beginning of the dictation. A Ruf[place] size 6, 9 mm PS X3 polyethylene insert was then placed. The patient's knee was brought through range of motion. The patella was tracking centrally and was stable to varus and valgus stress. Alignment was found to be roughly at 0 degrees. The tibia was stamped and drilled in proper rotation. The universal tibial base plate was impacted in place. Next, the [place] size 7 cemented PS femur impacted into place and the [place] size 6, 9 mm PS X3 polyethylene insert was placed. The patient's knee was brought into full extension. The patella was then cemented in place at this time. One liter Irrisept was irrigated through the knee along with 1 L of pulse lavage irrigation with Ancef. Periarticular injection was then completed. The patient's knee was brought through a range of motion. Once the cement had time to set up and it was found to be stable to varus valgus stress, the patella was tracking centrally with full range of motion. At this time, a #2 barbed suture was used for closure of the medial parapatellar arthrotomy. Topical tranexamic acid was placed. 2-0 Vicryl was used subcutaneously, Prineo was used for the skin. The patient tolerated the procedure well and was sent to the PACU in stable condition.. MMODAL /[id number] LION
== END 2020-03-02 11:15 | disposition home or self-care (01) ==
LOC: JD.SDS 09:54 → JD.OB 09:56 → JD.SDS 16:11 → JD.OB 16:12
PROVIDERS: ADMIT Orthopaedic Surgery; ATTEND Orthopaedic Surgery
DX: M17.11 Unilateral primary osteoarthritis, right knee (principal); I48.91 Unspecified atrial fibrillation; I10 Essential (primary) hypertension; E78.5 Hyperlipidemia, unspecified; G89.18 Other acute postprocedural pain; E66.9 Obesity, unspecified; Z01.812 Encounter for preprocedural laboratory examination; Z20.822 Contact with and (suspected) exposure to COVID-19; Z79.899 Other long term (current) drug therapy; Z98.890 Other specified postprocedural states; Z68.38 Body mass index [BMI] 38.0-38.9, adult
CPT/HCPCS: 27447; 36415; 73560; 80053; 85027; 85610; 85730; 87641; 97110; 97116; 97161; A9270; C1713; C1776; G0378; J0171; J0690; J0697; J1885; J2001; J2250; J2270; J2405; J2704; J2795; J3370; J3490; J7120; 01402; 64450; J3010

== ENCOUNTER 2021-01-17 07:22 | Day surgery (SDC) | payer MEDICARE, OTHER ==
--- NOTE | 2021-01-14 09:10 | PCM.PREANE ---
Preanesthetic Assessment - Procedure Proposed Procedure: Right Total Hip Arthroplasty - Anesthesia/Transfusion/Family Hx Anesthesia History: Prior Anesthesia Without Reaction Family History of Anesthesia Reaction: No Transfusion History: No Prior Transfusion(s) Intubation History: Unknown - Review of Systems Pulmonary: No Symptoms (Last used inhaler:), Shortness of Breath Cardiovascular: No Symptoms (History of Atrial Fibrillation on Xarelto: last dose (01/15/2021Sunday), Elevated cholesterol, HTN), Dyspnea on Exertion Neurological: Difficulty Walking (Uses walker) Other: Reports: Easy Bleeding (On Xarelto for a-fibrillation), Easy Bruising - Physical Assessment NPO Status Date: 01/16/21 Vital Signs: HR: Sat: Temp: B/P: Resp: Height: 1.73 m ASA Class: 3 Mental Status: Alert & Oriented x3 Airway Class: Mallampati = 1 Dentition: Reports: Edentulous (except bottom teeth) Thyro-Mental Finger Breadths: 3 Mouth Opening Finger Breadths: 3 ROM/Head Extension: Full Cardiovascular: Regular Rhythm, Irregular Rhythm - Lab Values: All labs reviewed and noted and within acceptable ranges to proceed with scheduled procedure. - Imaging/EKG Impressions: EKG: Atrial Fibrillation with PVC's noted rate=82. CXR: negative 01/2020 - Allergies Allergies/Adverse Reactions: Allergies Allergy/AdvReac Type Severity Reaction Status Date / Time No Known Allergies Allergy Verified 11/23/20 14:31 - Anesthesia Plan Pre-Op Medication Ordered: Beta Nydia Beta Nydia: Metoprolol Med Last Dose Date: 01/17/21 - Acknowledgements Anesthesia Type Planned: Spinal Pt an Appropriate Candidate for the Planned Anesthesia: Yes Alternatives and Risks of Anesthesia Discussed w Pt/Guardian: Yes Pt/Guardian Understands and Agrees with Anesthesia Plan: Yes PreAnesthesia Questionnaire HEENT History: Reports: None Cardiovascular History: Reports: Afib, High Cholesterol, Hypertension, Other (See Below) Other Cardiovascular History: bradycardia Respiratory History: Reports: None, Other (See Below) Gastrointestinal History: Reports: None Genitourinary History: Reports: Other (See Below) Other Genitourinary History: frequency TE[employer] READER History: Reports: None Musculoskeletal History: Reports: Arthritis, Other (See Below) Other Musculoskeletal History: left knee arthritis, left ankle fracture Neurological History: Reports: None Psychiatric History: Reports: None Endocrine/Metabolic History: Reports: Obesity/BMI 30+ Hematologic History: Reports: None Immunologic History: Reports: None Oncologic (Cancer) History: Reports: None Dermatologic History: Reports: None Other Dermatologic History: skin tears - Infectious Disease History Infectious Disease History: Reports: None - Past Surgical History Head Surgeries/Procedures: Reports: None HEENT Surgical History: Reports: None Cardiovascular Surgical History: Reports: None Respiratory Surgical History: Reports: None GI Surgical History: Reports: Colonoscopy Female Surgical History: Reports: None Male Surgical History: Reports: None Endocrine Surgical History: Reports: None Neurological Surgical History: Reports: None Musculoskeletal Surgical History: Reports: Hip Replacement, Knee Replacement Oncologic Surgical History: Reports: None Dermatological Surgical History: Reports: None - HOME MEDS Home Medications: Home Meds Albuterol Sulfate [Proair Hfa] 1 - 2 puff INH Q4H PRN 02/27/20 [History] Cholecalciferol (Vitamin D3) [Vitamin D3] 4,000 unit PO DAILY 02/27/20 [History] Finasteride [Proscar] 5 mg PO DAILY 02/27/20 [History] Metoprolol Succinate 100 mg PO DAILY 02/27/20 [History] Rivaroxaban [Xarelto] 20 mg PO DAILY 02/27/20 [History] Simvastatin [Zocor] 80 mg PO DAILY 02/27/20 [History] Spironolactone [Aldactone] 25 mg PO DAILY 02/27/20 [History] Tamsulosin [Flomax] 0.4 mg PO DAILY 11/23/20 [History] oxyCODONE 5 - 10 mg PO Q6H PRN #30 tab 11/23/20 [Rx] - CURRENT (IN HOUSE) MEDS Current Meds: Current Medications Morphine Sulfate 8 mg/Epinephrine HCl 0.3 mg/Cefuroxime Sodium 750 mg/Ketorolac Tromethamine 30 mg/Sodium Chloride 7.9 ml 0 mg .XX ASDIRECTED PRN PRN Reason: Pain Stop: 01/17/21 23:00 Lactated Ringer's (Ringers, Lactated) 1,000 mls @ 125 mls/hr IV ASDIRECTED [facility] Stop: 01/17/21 23:00 Lidocaine/Sodium Bicarbonate (Lidocaine 1%/Sod Bicarbonate In Ns 8.4% 1 Ml Syringe) 0.25 ml IDERM ONETIME PRN PRN Reason: Prior to IV Start Stop: 01/17/21 18:00 Sodium Chloride (Sodium Chloride 0.9% 10 Ml Syringe) 10 ml FLUSH ASDIRECTED PRN PRN Reason: Keep Vein Open Stop: 01/17/21 18:00
[~2021-01-17 07:22] MED LIST changes: -Acetaminophen 325 MG Tab PO SCH; -EPINEPHrine 1 MG/ML SDV ONE; -Lidocaine 1% 0 ML ONE; -Ondansetron 4 MG/2 ML SDV ONE; -Pregabalin 25 MG Cap PO SCH; -Propofol 200 MG/20 ML SDV ONE; -Ropivacaine 0.5% 5 MG/ML 30 ML SDV ONE; -ceFAZolin 1 GM Vial ONE; -oxyCODONE ER 10 MG TAB.ER PO SCH
--- NOTE | 2021-01-17 08:25 | PCM.PREANE ---
Preanesthetic Assessment - Anesthesia/Transfusion/Family Hx Anesthesia History: Prior Anesthesia Without Reaction Transfusion History: No Prior Transfusion(s) - Review of Systems General: No Symptoms, Other (A- fib) Pulmonary: No Symptoms Cardiovascular: No Symptoms, Other Gastrointestinal: No Symptoms Neurological: No Symptoms Other: Reports: None - Physical Assessment NPO Status Date: 01/16/21 NPO Status Time: 18:00 Vital Signs: 149/58 77 98% 97 F Height: 1.73 m Weight: 117.4 kg ASA Class: 3 Mental Status: Alert & Oriented x3 Airway Class: Mallampati = 2 Dentition: Reports: Normal Dentition, Edentulous Thyro-Mental Finger Breadths: 3 Mouth Opening Finger Breadths: 3 ROM/Head Extension: Limited/Partial Lungs: Clear to Auscultation, Normal Respiratory Effort Cardiovascular: Irregular Rhythm (A fib) - Allergies Allergies/Adverse Reactions: Allergies Allergy/AdvReac Type Severity Reaction Status Date / Time No Known Allergies Allergy Verified 11/23/20 14:31 - Anesthesia Plan Beta Nydia: Metoprolol Med Last Dose Date: 01/17/21 Med Last Dose Time: 05:00 - Acknowledgements Anesthesia Type Planned: General Anesthesia, Spinal Pt an Appropriate Candidate for the Planned Anesthesia: Yes Alternatives and Risks of Anesthesia Discussed w Pt/Guardian: Yes Pt/Guardian Understands and Agrees with Anesthesia Plan: Yes PreAnesthesia Questionnaire HEENT History: Reports: None Cardiovascular History: Reports: Afib, High Cholesterol, Hypertension, Other (See Below) Other Cardiovascular History: bradycardia Respiratory History: Reports: Asthma (occasional seasonal exacerbations) Gastrointestinal History: Reports: None Genitourinary History: Reports: Other (See Below) Other Genitourinary History: frequency PMP History: Reports: None Musculoskeletal History: Reports: Arthritis, Other (See Below) Other Musculoskeletal History: left knee arthritis, left ankle fracture Neurological History: Reports: None Psychiatric History: Reports: None Endocrine/Metabolic History: Reports: Obesity/BMI 30+ Hematologic History: Reports: None Immunologic History: Reports: None Oncologic (Cancer) History: Reports: None Dermatologic History: Reports: None Other Dermatologic History: skin tears - Infectious Disease History Infectious Disease History: Reports: None - Past Surgical History Head Surgeries/Procedures: Reports: None HEENT Surgical History: Reports: None Cardiovascular Surgical History: Reports: None Respiratory Surgical History: Reports: None GI Surgical History: Reports: Colonoscopy Female Surgical History: Reports: None Male Surgical History: Reports: None Endocrine Surgical History: Reports: None Neurological Surgical History: Reports: None Musculoskeletal Surgical History: Reports: Hip Replacement, Knee Replacement (bilateral) Oncologic Surgical History: Reports: None Dermatological Surgical History: Reports: None - HOME MEDS Home Medications: Home Meds Albuterol Sulfate [Proair Hfa] 1 - 2 puff INH Q4H PRN 02/27/20 [History] Cholecalciferol (Vitamin D3) [Vitamin D3] 4,000 unit PO DAILY 02/27/20 [History] Finasteride [Proscar] 5 mg PO DAILY 02/27/20 [History] Metoprolol Succinate 100 mg PO DAILY 02/27/20 [History] Rivaroxaban [Xarelto] 20 mg PO DAILY 02/27/20 [History] Simvastatin [Zocor] 80 mg PO DAILY 02/27/20 [History] Spironolactone [Aldactone] 25 mg PO DAILY 02/27/20 [History] Tamsulosin [Flomax] 0.4 mg PO DAILY 11/23/20 [History] oxyCODONE 5 - 10 mg PO Q6H PRN #30 tab 01/14/21 [Rx] - CURRENT (IN HOUSE) MEDS Current Meds: Current Medications Morphine Sulfate 8 mg/Epinephrine HCl 0.3 mg/Cefuroxime Sodium 750 mg/Ketorolac Tromethamine 30 mg/Sodium Chloride 7.9 ml 0 mg .XX ASDIRECTED PRN PRN Reason: Pain Stop: 01/17/21 23:00 Lactated Ringer's (Ringers, Lactated) 1,000 mls @ 125 mls/hr IV ASDIRECTED MAGDALENA Stop: 01/17/21 23:00 Lidocaine/Sodium Bicarbonate (Lidocaine 1%/Sod Bicarbonate In Ns 8.4% 1 Ml Syringe) 0.25 ml IDERM ONETIME PRN PRN Reason: Prior to IV Start Stop: 01/17/21 18:00 Sodium Chloride (Sodium Chloride 0.9% 10 Ml Syringe) 10 ml FLUSH ASDIRECTED PRN PRN Reason: Keep Vein Open Stop: 01/17/21 18:00
[2021-01-17] MEDS ORDERED: Vancomycin 1 GM SDV ONE (09:01)
[2021-01-17] MEDS ORDERED: ceFAZolin 1 GM Vial ONE (09:27)
[2021-01-17] MEDS ORDERED: Lidocaine 1% 4 ML ONE (09:27)
[2021-01-17] MEDS ORDERED: fentaNYL 100 MCG/2 ML SDV ONE (09:28)
[2021-01-17] MEDS ORDERED: Propofol 200 MG/20 ML SDV ONE ×2 (09:38→11:33)
[2021-01-17] MEDS ORDERED: Ketamine 500 mg/10 ML MDV ONE (11:21)
[2021-01-17] MEDS ORDERED: Lactated Ringers 1,000 ML ONE (11:36)
--- NOTE | 2021-01-17 13:08 | PCM.POSTAN ---
POST ANESTHESIA ASSESSMENT - MENTAL STATUS Mental Status: Alert, Oriented - VITAL SIGNS Vital Signs: Last Vital Signs Temp 96.8 F L 01/17/21 13:00 Pulse 77 01/17/21 07:35 Resp 15 01/17/21 13:00 BP 101/58 L 01/17/21 13:00 Pulse Ox 95 01/17/21 13:00 - RESPIRATORY Respiratory Status: Respiratory Rate WNL, Airway Patent, O2 Saturation Stable - CARDIOVASCULAR CV Status: Pulse Rate WNL, Blood Pressure Stable - GASTROINTESTINAL GI Status: No Symptoms - PAIN Pain Score: 0 (post SAB. Pt has shoulder pain from positioning) - POST OP HYDRATION Hydration Status: Adequate & Stable
[2021-01-17] MEDS ORDERED: oxyCODONE 5 MG Tab PO PRN (13:09)
--- NOTE | 2021-01-18 07:57 | CR ---
Pelvis and right hip: AP view of the pelvis was obtained as well as crosstable lateral view of the right hip. Comparison: Previous right hip CT study of 11/17/20. Recently placed right hip prosthesis is seen. Components are aligned. Underlying bony structures are intact. Soft tissue air is noted around the right hip from the surgical procedure. Stable left hip prosthesis is seen. Bony structures are osteopenic. Mild vascular calcification is noted. Impression: 1. Satisfactory postoperative radiographic appearance of recently placed right hip prosthesis. 2. Other stable findings as noted above. Diagnostic code #2
--- NOTE | 2021-01-26 15:54 | PCM.OPNOTE ---
- General Post-Op/Procedure Note Date of Surgery/Procedure: 01/17/21 Operative Procedure(s): right total hip arthroplasty with [employer] robot[employer] Pre Op Diagnosis: right hip osteoarthrosis Post-Op Diagnosis: Same Anesthesia Technique: Local, MAC, Spinal Primary Surgeon: Pedro Rodriguez Anesthesia Provider: Jack Mcclure Rug Dyer: Cecily Millan Rug Dyer: Shannon Gibson EBL in mLs: 75 Complications: None Condition: Good Free Text/Narrative:: 54 36+2.5 7
--- NOTE | 2021-01-26 16:59 | OR ---
DATE OF OPERATION: 01/17/2021 SURGEON: Pedro Rodriguez MD OPERATION PERFORMED: Right total hip arthroplasty with [employer] robot[employer]. PREOPERATIVE DIAGNOSIS: Right hip osteoarthrosis. POSTOPERATIVE DIAGNOSIS: Right hip osteoarthrosis. ANESTHESIA: Local MAC with spinal. ANESTHESIA PROVIDER: Loli Colindres. ASSISTANTS: Cecily Millan PA-C; and Shannon Gibson LPN. ESTIMATED BLOOD LOSS: 75 mL. COMPLICATIONS: None. CONDITION: Stable. IMPLANTS: 1. Rufus size 54 mm Tritanium II acetabular cup. 2. Rufus size 36, +2.5 BIOLOX femoral head. 3. Walden size 7 Accolade II stem. DESCRIPTION OF PROCEDURE: The patient was identified in the preoperative holding area. Proper site was marked, identified by the surgeon. The patient was taken back to the operating theater where after adequate anesthesia, the patient was placed in a left lateral decubitus position. Axillary roll was placed. Pegs were placed and well padded. The patient's gluteal fold was parallel to the floor. Right hip was then sterilely prepped and draped in the usual sterile fashion. OR time-out was performed. Patient received 2 g of IV Ancef. Three small poke hole incisions were then made over the iliac crest three fingerbreadths posterior to the ASIS. Three 4.0 Schanz pins were then placed, and a [employer]el[employer]o robotic array was placed down onto the iliac crest. At this time, attention was turned to the posterior incision. A posterior incision was made centered over the greater trochanter. This was taken down to the IT band and gluteal fascia which was incised along the incisional length. Charnley retractor was then placed. Checkpoint was placed in the greater trochanter and leg lengths were measured using the Rufus Norberto robotic plan. Takedown of short external rotators was done from the level of the piriformis down to the lesser trochanter. At this time, hip was dislocated. Neck cut was completed and found to be adequate. Attention was turned to the acetabulum. Anterior and posterior acetabular retractors were placed. Circumferential removal of the pulvinar as well as labrum was done at this time. Checkpoint was then placed on superior rim of the acetabulum and 15 points were obtained intra-articularly and then extra- articularly around the acetabulum. The three checkpoints on the [employer] robotic array on the iliac crest were also done at this time. The 54 mm reamer was then brought in on the [employer] robotic arm and was set for 45 degrees of abduction and 20 degrees of anteversion. Reaming was then completed and found to be in adequate ream with good bony bleeding bed. The size 54 mm Tritanium II acetabular cup was placed onto the [employer] robotic arm and was impacted in place in 45 degrees of abduction and 20 degrees of anteversion. The 36 flat liner was then impacted in place. Attention was turned to the femur. Box chisel was used out laterally. Starter awl was placed down the canal starting with the 0 broach, I was able to broach up to a size 7 which was found to be rotationally and vertically stable. A 36, +2.5 trial head was then placed. The hip was relocated. The patient had adequate pentecostal of leg lengths and was stable throughout range of motion. Hip was then dislocated. Trial implants were removed. The size 7 Accolade II stem was impacted in place along with a 36, +2.5 BIOLOX femoral head. Hip was then relocated. #5 Ethibond suture was used for closure of the short external rotators and capsule. 1 L pulse lavage irrigation with Ancef was irrigated through the hip along with 400 mL of IrriSept irrigation. Topical tranexamic acid and vancomycin powder were applied. Periarticular injection was completed. #2 barbed suture was used for closure of the IT band and gluteal fascia, 2-0 Vicryl was used subcutaneously, and Prineo was used for skin closure. The patient had a sterile soft dressing applied and sent to the PACU in stable condition. Please note, all [employer] robotic arrays and checkpoints were removed before closure. [facility] /[id number]
== END 2021-01-17 15:00 | disposition home or self-care (01) ==
LOC: JD.SDS 07:22
PROVIDERS: ATTEND Orthopaedic Surgery
DX: M16.11 Unilateral primary osteoarthritis, right hip (principal); I48.91 Unspecified atrial fibrillation; I10 Essential (primary) hypertension; E66.9 Obesity, unspecified; E78.00 Pure hypercholesterolemia, unspecified; Z79.899 Other long term (current) drug therapy; Z01.812 Encounter for preprocedural laboratory examination; Z20.822 Contact with and (suspected) exposure to COVID-19; Z98.890 Other specified postprocedural states; Z68.39 Body mass index [BMI] 39.0-39.9, adult
CPT/HCPCS: 27130; 36415; 73501; 85610; 85730; 86850; 86900; 86901; 97110; 97116; 97161; A9270; C1713; C1776; J0690; J2704; J3010; J3370; J7120; U0002; 01214; 99100